=== PATIENT | female | born 1930 | race Caucasian/White ===

== ENCOUNTER 2017-09-09 08:47 | Inpatient (IN) | payer MEDICARE, BC ==
[2017-09-09] MEDS ORDERED: Ketorolac Tromethamine 30 MG/ML VIAL ONE (09:43)
--- NOTE | 2017-09-09 09:56 | RAD ---
PELVIS ONE VIEW: History: Injury. Comparison: None. FINDINGS: There is an intertrochanteric fracture of the right femur. There is one cortex width displacement. No significant varis angulation. Moderate degenerative disease at both hip joints. Obturator rings ar e intact. IMPRESSION: Nondisplaced intertrochanteric fracture of the right femur. POS: [facility]
--- NOTE | 2017-09-09 10:08 | RAD ---
RIGHT HIP 2 VIEWS: Date: 09/09/17 HISTORY: Injury, right hip pain. FINDINGS/IMPRESSION: There is an intertrochanteric fracture of the right proximal femur with mild displacement. POS: [facility]
[2017-09-09 10:30] LABS: #Basophils 0.1 thou/uL (0.0-0.2); #Eosinphils 0.4 thou/uL (0.0-0.7); #Lymphocytes 1.1 thou/uL (1.20-3.40); #Monocytes 0.3 thou/uL (0.11-0.59); #Neutrophils 3.9 thou/uL (1.40-6.50); %Basophils 1.2 % (0.0-1.0); %Eosinophils 7.7 % (0.0-10.0); %Lymphocytes 19.6 % (21.0-51.0); %Monocytes 4.9 % (0.0-10.0); %Neutrophils 66.7 % (42.0-75.0); Hemoglobin 11.7 g/dL (12.0-16.0); Mean Corpuscular HGB CONC 31.6 g/dL (32.0-36.0); Mean Corpuscular Hemoglobin 31.5 pg (27.0-31.0); Mean Corpuscular Volume 99.6 fl (81.0-99.0); Mean Platelet Volume 8.9 fL (7.4-10.4); Platelet Count 205 thou/uL (130-400); RBC Distribution Width 11.1 % (11.5-14.5); White Blood Cell (WBC) Count 5.8 thou/uL (4.8-10.8)
[2017-09-09 10:48] LABS: Prothrombin Time 13.7 SEC (12.0-14.7)
[2017-09-09 10:49] LABS: PTT 27.9 SEC (22.9-36.1)
[2017-09-09 10:54] LABS: ALT (SGPT) 8 U/L (8-55); AST (SGOT) 17 U/L (5-34); Alkaline Phosphatase 94 U/L (40-150); Anion Gap 13 mmol/L (10-20); BUN (Urea Nitrogen) 34 mg/dL (9.8-20.1); Bilirubin, Total 0.8 mg/dL (0.2-1.2); Calc. Creatinine Clearance 0 mL/min (70-130); Calcium 9.5 mg/dL (7.8-10.44); Carbon Dioxide 32 mmol/L (23-31); Chloride 100 mmol/L (98-107); Estimated GFR-MDRD 26; Globulin 3.3 g/dL (2.4-3.5); Glucose 132 mg/dL (83-110); Potassium 4.1 mmol/L (3.5-5.1); Protein, Total 7.3 g/dL (6.0-8.3); Sodium 141 mmol/L (136-145)
[2017-09-09] MEDS ORDERED: Promethazine HCl 25 MG/ML VIAL IM PRN ×2 (11:10→18:29)
[2017-09-09] MEDS ORDERED: Dextrose 5% in Water 1,000 ML IV PRN ×2 (11:10→21:42)
[2017-09-09] MEDS ORDERED: Dextrose 50% Abboject 50 ML SYRINGE SLOW IVP PRN ×2 (11:10→21:42)
[2017-09-09] MEDS ORDERED: Ondansetron HCl/PF 4 MG/2 ML Vial IVP PRN ×2 (11:10→18:29)
[2017-09-09] MEDS ORDERED: Ondansetron ODT 4 MG TAB PO PRN (11:10)
--- NOTE | 2017-09-09 11:39 | RAD ---
PORTABLE AP CHEST RADIOGRAPH: Date: 09-09-17 History: Right hip pain after a fall. Comparison: 12-18-07 FINDINGS: The cardiac silhouette and pulmonary vasculature are within normal limits. The lungs appear clear. Th ere is a linear density overlying the lateral left lung which is most likely related to overlying ski n fold as there does appear to be lung markings lateral to this region. No pleural effusion is presen t. Vascular calcification seen in the thoracic aorta. Degenerative changes are noted in the spine. Th ere is bilateral acromioclavicular joint osteoarthritis with bilateral glenohumeral osteoarthropathy. IMPRESSION: No acute cardiopulmonary process. POS: [facility]
--- NOTE | 2017-09-09 12:05 | CON ---
DATE OF CONSULTATION: 09/09/2017 REQUESTING PHYSICIAN: Dr. Mcduffie. CONSULTING PHYSICIAN: Dr. Markus Collins. REASON FOR CONSULTATION: Right hip fracture. BRIEF HISTORY: This is an 87-year-old female, who was at home today, taking out the trash when she t ripped over a door frame ledge in her house, falling and landing on her right side. She was brought to the [facility] where she was found to have an intertrochanteric fracture of t he right hip. Our service has been consulted for this reason. Patient currently reports pain level minimal, as 2/10. She denies any other orthopedic injuries at this time. Her baldtgao-sh-urr is pre sent with her at bedside. PAST MEDICAL HISTORY: Significant for hypertension and diabetes, which are both controlled. PAST SURGICAL HISTORY: Patient has had bilateral total knee replacements done many years ago. She d oes not remember the physician that operated on her knees at this time. SOCIAL HISTORY: The patient lives at home alone here in [place]. She is very active. She states that she walks down the street to [facility] every day. Son and ubruommp-mo-cmr live nearby. She denies any smoking, drinking, or use of illicit drugs. PHYSICAL EXAMINATION: VITAL SIGNS: Blood pressure 122/56, pulse of 76, respiratory rate of 18, temperature of 98.3, oxygen saturation 95% on room air. GENERAL: The patient is awake and alert. She is oriented x3. She is in no acute distress. She is lying supine on a stretcher in the emergency department. Tkjfcyqu-lz-imn is at bedside. She is plea ezio and cooperative with exam at this time. HEENT: Head normocephalic, atraumatic. NECK: Supple. EXTREMITIES: Right lower extremity noted to be externally rotated and not shortened at this time. S he is able to move her foot and ankle and all toes. Sensation is intact. Dorsalis pedis pulse is pa lpable. No other injuries noted at this time. Remainder of extremity exam is otherwise unremarkable . IMAGING DATA: Shows views of the pelvis and right hip, which show a minimally displaced intertrochan teric femur fracture. ASSESSMENT AND PLAN: Right hip intertrochanteric femur fracture. Plan is to proceed with surgery th is afternoon with Dr. Collins with a DHS device. Risks, benefits, and alternatives of surgery were discussed at length with the patient and her family today. They are both amenable to this plan. Th ey understand and are willing to go forward with surgery. The patient admitted to the Trauma Service . She will be n.p.o. except for medication with small sips of water.
--- NOTE | 2017-09-09 12:13 | HP ---
DATE OF ADMISSION: 09/09/2017 ATTENDING PHYSICIAN: Dr. Yusuf Mcduffie CONSULTING PHYSICIAN: Dr. Markus Collins CHIEF COMPLAINT: Right hip pain status post ground level fall. HISTORY OF PRESENT ILLNESS: Ms. Doyle is an 87-year-old female who was in her usual state of health this morning when she was taking out the trash and on her way back in tripped on the door frame and fell. She reports landing on her right buttocks and hip. She denies head injury, loss of consciousn ess or injury to other body part. She reports that she was initially able to bear weight. EMS was [facility] and she was transported to the [facility] where she was found to have a right intertrochante archie fracture. The patient denies headache, dizziness, nausea, vomiting, numbness or tingling in her extremities. She currently reports pain that is localized to the right groin area. She says with mo vement it is 10/10. However, the pain is a 0/10 with rest. The pain does not radiate. The patient reports that her last meal was this morning, which consisted of a few slices of canned apple. PAST MEDICAL HISTORY: The patient reports a history of congestive heart failure with ejection fracti on 40-45%. The patient also reports history of diabetes mellitus. The patient reports a significant weight loss over the last few years. She reports approximately 25 pounds in the last 6 months. The patient reports a previous history of falls. The patient reports a history of overactive bladder. MEDICATIONS: Patient reports following medications: 1. Metformin 500 mg b.i.d. 2. Myrbetriq 50 mg b.i.d. 3. Carvedilol 3.125 mg b.i.d. 4. VESIcare 10 mg daily. 5. Restasis 0.05% b.i.d. 6. Lasix 70 mg p.r.n. 7. Aspirin 81 mg daily. 8. Fish oil daily. 9. Vitamin B12 daily. 10. Vitamin D daily. 11. Theragran multivitamin daily. PAST SURGICAL HISTORY: The patient reports a history of bilateral mastectomy, bilateral knee replace ments and hysterectomy. SOCIAL HISTORY: The patient denies alcohol, drug use or tobacco use. The patient lives alone in a [facility] house. ALLERGIES: The patient reports a history of LEVAQUIN allergy. PSYCHIATRIC HISTORY: The patient denies any psychiatric history. CODE STATUS: The patient is full code. The patient has an advanced directive which she has left at home and for which she does not recall the contents. The patient's rsluuunj-ry-sti was at bedside an d was instructed to bring the advance directive to the hospital. REVIEW OF SYSTEMS: A 10 point review of systems was performed at bedside and is negative except as m entioned in the HPI. PHYSICAL EXAMINATION: VITAL SIGNS: BP 122/56, pulse 76, respirations 18, temperature 98.3, O2 sat 95% on room air. GENERAL: The patient is an elderly, frail adult female in no acute distress. HEENT: The patient is normocephalic and atraumatic. Eyes; pupils are equal, round, and reactive to light and accommodation. Pupils are 2 mm bilaterally. Extraocular movements intact. Ears; the christiano ent has bilateral hearing aids. Ears are atraumatic. Nose: Nares are patent and atraumatic. Mouth : Oropharynx is pink and moist with intact dentition. There is no evidence of trauma. NECK: Trachea is midline. She has no tenderness. CHEST: The patient has bilateral scars from a previous mastectomy. Breath sounds are clear to auscu ltation bilaterally. There is no chest wall tenderness. CARDIOVASCULAR: She has a regular rate and rhythm. Normal S1 and S2. ABDOMEN: Her abdomen is soft, flat and nontender. She has normal bowel sounds. EXTREMITIES: She is neurovascularly intact x4. She has a small 0.5 cm ulcer overlying a bunion on h er right foot. Another small ulcer is between her second and third toes on the right foot. Both of these are superficial. The patient has pain with palpation over her right groin and hip. Her right leg is mildly externally rotated and shortened. NEUROLOGIC: The patient's GCS is 15. She is alert and oriented x3. She has no focal deficits. PSYCHIATRIC: The patient's mood and affect are unremarkable. LABORATORY DATA: Hematology: WBC is 5.8, hemoglobin 11.7, hematocrit 36.9, platelets 205. Coagulat ion: PT 13.7, INR 1.0, APTT 27.9. Chemistry: Sodium 141, potassium 4.1, chloride 100, bicarbonate 32, BUN 34, creatinine 1.81, glucose 132, calcium 9.5, total bilirubin 0.8, AST 17, ALT 8, alkaline p hosphatase 94, serum total protein 7.3, albumin 4.0, globulin 3.3, albumin globulin ratio 1.2. IMAGIN. Pelvis x-ray; 1) nondisplaced intertrochanteric fracture of the right femur. 2. Hip x-ray, 1) there is an intertrochanteric fracture of the right proximal femur with mild displa cement. 3. Chest x-ray; official read is pending. ASSESSMENT AND PLAN: 1. Right intertrochanteric hip fracture. 2. Status post ground level fall. 3. Acute traumatic pain. 4. Elevated BUN and creatinine, likely secondary to chronic kidney disease. 5. History of congestive heart failure present on admission. 6. History of diabetes mellitus, present on admission. 7. History of significant weight loss. 8. History of falls. PLAN: 1. Plan will be to go to the OR today for surgical fixation of her right hip with Dr. Collins. 2. We will optimize her pain control. Initiate gastritis prophylaxis and mechanical deep venous thr ombosis prophylaxis. We will initiate chemical DVT prophylaxis when appropriate per Orthopedic Surge ry recommendations. 3. Rehab screen with PT and OT for mobilization postoperatively. 4. Avoid NSAIDs and other nephrotoxic agents as possible given her chronic kidney disease.
[2017-09-09] MEDS ORDERED: CEFAZOLIN/Water 2 GM/20 ML SYRINGE SLOW IVP SCH (12:15)
[2017-09-09] MEDS ORDERED: CEFAZOLIN/Water 2 GM/20 ML SYRINGE ONE (14:09)
[2017-09-09] MEDS ORDERED: PHENYLEPHRINE-NS 100 MCG/ML 10 ML SYRINGE ONE (14:39)
[2017-09-09] MEDS ORDERED: Propofol 200 MG/20 ML VIAL ONE (14:39)
[2017-09-09] MEDS ORDERED: Ondansetron HCl/PF 4 MG/2 ML Vial ONE (14:39)
[2017-09-09] MEDS ORDERED: Lidocaine 1% PF 5 ML VIAL ONE (14:39)
[2017-09-09] MEDS ORDERED: ePHEDrine/0.9% NaCl/PF SYRINGE 50 mg/10 ml ONE (14:39)
[2017-09-09] MEDS ORDERED: Fentanyl 250 MCG/5 ML VIAL ONE (16:46)
[2017-09-09] MEDS ORDERED: Promethazine HCl 25 MG/ML VIAL SLOW IVP PRN (18:29)
[2017-09-09 18:56] LABS: Bilirubin Negative (Negative); Blood, Urine Negative (Negative); Clarity CLEAR (Clear); Glucose, Urine (Dipstick) Negative (Negative); Leukocyte Negative (Negative); Nitrite Negative (Negative); Protein, Urine (Dipstick) Negative (Neg-Trace); Specific Gravity, Urine 1.014 (1.002-1.036); Urobilinogen 0.2 mg/dL (0.2-1.0)
--- NOTE | 2017-09-09 20:28 | RAD ---
TWO FLUOROSCOPIC SPOT IMAGES OF THE RIGHT HIP 09/09/17 INDICATION: Postop right hip. COMPARISON: Prior exam dated 09/09/17. FINDINGS: Since the comparison examination there has been interval reduction and placement of a right hip screw and side plate. Fracture alignment appears near anatomic. The hip screw and side plate project in th e expected position. No gross evidence of complication. IMPRESSION: Postoperative right hip. POS: [facility]
--- NOTE | 2017-09-09 20:29 | RAD ---
TWO VIEWS OF THE RIGHT HIP: 09/09/17 INDICATION: Postop. COMPARISON: Prior exam dated 09/09/17 at 5:01 p.m. FINDINGS: The right hip screw and side plate is not appreciably changed in position. Fracture alignment involvi ng the proximal right femur is unchanged and near anatomic. IMPRESSION: Postoperative right hip. POS: [facility]
--- NOTE | 2017-09-09 20:33 | OP ---
DATE OF PROCEDURE: 09/09/2017 OPERATION: Right intertrochanteric femur fracture, open reduction and internal fixation. PREOPERATIVE DIAGNOSIS: Right intertrochanteric femur fracture. POSTOPERATIVE DIAGNOSIS: Right intertrochanteric femur fracture. COMPLICATIONS: None. ESTIMATED BLOOD LOSS: 150 mL. SURGEON: Markus Collins M.D. IN HOUSE CRA: Abhay Bowles PA-C. INDICATIONS: Ms. Doyle is an 87-year-old female who fell this morning. She fractured her right fem ur. She was indicated for open reduction and internal fixation of the femur to restore anatomic alig nment and promote healing as well as promote early mobilization. Risk of surgery were reviewed. She elected to proceed with the operation. DESCRIPTION OF THE OPERATION: Ms. Doyle was identified in the preoperative holding area. She was t aken to the operating room. She was positioned supine on the fracture table. General anesthesia was induced. A multidisciplinary timeout was performed. The right lower extremity was prepped and drap ed in the sterile fashion. We began the procedure with intraoperative x-ray and evaluation of the fe mur fracture. We identified the intertrochanteric fracture and reduced this using traction and rotat ion. At this point, we made an incision over the lateral thigh. We dissected down through the subcu taneous tissues to the fascia, which was incised. We then split the vastus lateralis and worked down to the bony level. At this point, we placed our 135-degree guide on the lateral femur. We then ins erted our guide pin from distal to proximal into centered position of the femoral head. Once this wa s seated, we took x-rays laterally as well. We then overdrilled the guidewire. Next, we placed a 10 0-mm screw into the center position of the femoral head. A 3-hole DHS plate was attached to the scre w. We placed 3 distal screws. We confirmed hardware placement and alignment. There were no complic ations. We thoroughly irrigated with copious lavage. We then closed with 0-Vicryl suture, 2-0 Vicry l suture and bren for the skin and a sterile dressing was applied. The patient was taken to the r ecovery room in good condition without complication. IMPLANTS: Synthes dynamic hip screw size 100-mm with 3-hole plate.
[2017-09-09] MEDS: Sodium Chloride 0.9% 1,000 ML IV SCH ×2 (21:28→23:04)
[2017-09-09] MEDS ORDERED: HYDROcodone/Acetaminophen 10/325 mg Tablet PO PRN (21:41)
[2017-09-09] MEDS ORDERED: Insulin Regular 300 UNITS/3 ML VIAL SC PRN (21:42)
[2017-09-09] MEDS: Famotidine 20 MG TAB PO SCH (21:45)
[2017-09-09] MEDS: Famotidine/PF 20 mg/2ml Vial SLOW IVP SCH (21:49)
--- NOTE | 2017-09-09 22:09 | PRG ---
DATE OF SERVICE: 09/09/2017 SUBJECTIVE: The patient is immediately postop status post open reduction internal fixation of a righ t intertrochanteric femur fracture. The patient has just arrived on the [facility] from the post-anesthesi a care unit. She is awake, alert, and oriented and interacting appropriately, stating that her pain is controlled. The patient denies any nausea, vomiting, chest pain, or shortness of breath. OBJECTIVE: VITAL SIGNS: Stable. LUNGS: Clear to auscultation with good inspiratory and expiratory effort. EXTREMITIES: Postop dressing is clean, dry, and intact. She is neurovascularly intact distally. ASSESSMENT: 1. Status post fall. 2. Status post open reduction internal fixation of right intertrochanteric femur fracture. PLAN: Will be to transition the patient to p.o. pain medications, diet, weightbearing instructions p er Orthopedics and we will reduce her IV fluids, given her history of congestive heart failure. Thou gh we will continue them in light of the patient's acute kidney injury, we will recheck these labs in the morning and also follow her urinary output.
[2017-09-09] MEDS: traMADol HCl 50 MG TAB PO SCH (23:00)
[2017-09-09] MEDS: Acetaminophen 325 MG TAB PO SCH (23:00)
[2017-09-09] MEDS: CEFAZOLIN/Water 2 GM/20 ML SYRINGE SLOW IVP SCH (23:04)
[2017-09-10 00:36] VITALS: BMI 19.8
[2017-09-10 02:21] LABS: Bilirubin Negative (Negative); Blood, Urine Negative (Negative); Clarity CLEAR (Clear); Glucose, Urine (Dipstick) Negative (Negative); Leukocyte Small (Negative); Nitrite Negative (Negative); Protein, Urine (Dipstick) Negative (Neg-Trace); Specific Gravity, Urine 1.025 (1.002-1.036); Urobilinogen 0.2 mg/dL (0.2-1.0)
[2017-09-10 02:52] LABS: Bacteria/HPF None Seen HPF (None Seen); Hyaline Casts/LPF 0-3 HYALINE CAST LPF (0-3 Hyaline); Squamous Epithelial 0-3 HPF (0-3)
[2017-09-10] MEDS: traMADol HCl 50 MG TAB PO SCH ×3 (04:57→16:48)
[2017-09-10] MEDS: Acetaminophen 325 MG TAB PO SCH ×4 (04:57→22:20)
[2017-09-10 05:30] LABS: #Basophils 0.1 thou/uL (0.0-0.2); #Eosinphils 0.3 thou/uL (0.0-0.7); #Lymphocytes 1.3 thou/uL (1.20-3.40); #Monocytes 0.5 thou/uL (0.11-0.59); #Neutrophils 5.1 thou/uL (1.40-6.50); %Basophils 0.7 % (0.0-1.0); %Eosinophils 3.6 % (0.0-10.0); %Lymphocytes 18.3 % (21.0-51.0); %Neutrophils 70.5 % (42.0-75.0); Hemoglobin 10.7 g/dL (12.0-16.0); Mean Corpuscular HGB CONC 32.1 g/dL (32.0-36.0); Mean Corpuscular Hemoglobin 31.2 pg (27.0-31.0); Mean Corpuscular Volume 97.2 fl (81.0-99.0); Mean Platelet Volume 8.3 fL (7.4-10.4); Platelet Count 157 thou/uL (130-400); RBC Distribution Width 10.9 % (11.5-14.5); Red Blood Cell (RBC) Count 3.43 mill/uL (4.20-5.40); White Blood Cell (WBC) Count 7.2 thou/uL (4.8-10.8)
[2017-09-10 05:43] LABS: Anion Gap 13 mmol/L (10-20); BUN (Urea Nitrogen) 28 mg/dL (9.8-20.1); Calc. Creatinine Clearance 24 mL/min (70-130); Calcium 8.8 mg/dL (7.8-10.44); Carbon Dioxide 30 mmol/L (23-31); Chloride 99 mmol/L (98-107); Estimated GFR-MDRD 32; Glucose 124 mg/dL (83-110); Phosphorus 4.2 mg/dL (2.3-4.7); Potassium 4.3 mmol/L (3.5-5.1); Sodium 138 mmol/L (136-145)
[2017-09-10] MEDS: CEFAZOLIN/Water 2 GM/20 ML SYRINGE SLOW IVP SCH (06:25)
[2017-09-10] MEDS: Enoxaparin Sodium 30 MG/0.3 ML SYRINGE SC SCH (09:06)
[2017-09-10] MEDS: Carvedilol 3.125 MG TAB PO SCH ×2 (09:07→16:29)
[2017-09-10] MEDS ORDERED: traMADol HCl 50 MG TAB PO PRN (09:09)
[2017-09-10] MEDS ORDERED: Sodium Chloride 0.9% 500 ML IVPB SCH (11:45)
[2017-09-10] MEDS: cycloSPORINE 0.05% Ophthalmic Droperette EA EYE SCH ×2 (14:14→22:21)
[2017-09-10] MEDS: Sodium Chloride 0.9% 1,000 ML IV SCH ×2 (16:20→16:47)
--- NOTE | 2017-09-10 18:09 | PRG ---
DATE OF SERVICE: 09/10/2017 ATTENDING PHYSICIAN: Yusuf Mcduffie D.O. SUBJECTIVE: Ms. Doyle is an 87-year-old female who was admitted yesterday after suffering a ground level fall in which she suffered a right intertrochanteric femur fracture. She is now postop day #1 status post open reduction and internal fixation by Dr. Collins. The patient was alert and did not voice any complaints upon exam this morning. However, prior to this, she had a presyncopal episode when working with physical therapy. The patient was reported to have a systolic pressure in the 80s. No heart rate was reported by physical therapy staff. Per report, the patient became symptomatic o nly after standing while working with physical therapy. She was laid back down in bed after which sh e became more alert and oriented and was conversational with staff. Upon my examination, the patient was alert and oriented, but had no recollection of the event. She was given a 500 mL bolus of fluid s. After this, her vital signs were measured as follows 106/59 with a pulse of 72. She then stood a nd had a blood pressure of 56/37 with a pulse of 76. The patient was laid back down and blood pressu re was remeasured at 106/60 with a pulse of 67. OBJECTIVE: VITAL SIGNS: This morning, BP 117/62, pulse 67, temperature 97.9, respirations 12, O2 sat 98% on arnie m air. GENERAL APPEARANCE: The patient is an elderly somewhat frail adult female in no acute distress. HEENT: The patient is normocephalic and atraumatic. Pupils equal, round, and reactive to light and accommodation. Pupils approximately 2 mm bilaterally. RESPIRATORY: The patient has breath sounds that are clear to auscultation bilaterally. She has norm al effort of breathing. CARDIOVASCULAR: She has a regular rate and rhythm. Normal S1 and S2. No murmurs, gallops or rubs. ABDOMEN: Soft, flat and nontender. She has normal bowel sounds. NEUROLOGIC: The patient's GCS is 15. She is alert and oriented x3. She has no focal deficits. LABORATORY DATA: Hematology: WBC is 7.2, hemoglobin 10.7, hematocrit 33.4, platelets 157. Chemistr y: Sodium 138, potassium 4.3, chloride 99, bicarbonate 30, BUN 28, creatinine 1.53, glucose 124, marilyn cium 8.8, phosphorus 4.2, magnesium 2.0. Urinalysis significant for small leukocyte esterase and wbc s of 11-20. IMAGING: There are no images to review today. ASSESSMENT: 1. Right intertrochanteric hip fracture, status post open reduction and internal fixation. 2. Status post ground level fall. 3. Acute traumatic pain. 4. Chronic kidney disease. 5. Orthostatic hypotension. 6. History of diabetes mellitus, present on admission. 7. History of significant weight loss. 8. History of falls. PLAN: 1. We will continue to optimize the patient's pain control. The patient currently reports adequate pain control, so we will continue current regimen as ordered. 2. The patient received one 500 mL bolus of fluid for orthostatic hypotension. Maintenance fluids i ncreased to 80 per hour. We will watch closely and adjust as needed tomorrow prior to physical thera py. 3. PT and OT for mobilization. 4. Avoid NSAIDs and other nephrotoxic agents given chronic kidney disease. 5. Restart Restasis for dry eyes. 6. Restart melatonin for sleep. This patient was seen and examined with Dr. Yusuf Mcduffie on rounds and agrees with the assessment an d plan.
[2017-09-10] MEDS: Famotidine 20 MG TAB PO SCH (22:20)
[2017-09-10] MEDS: Melatonin 3 MG TAB PO SCH (22:21)
--- NOTE | 2017-09-10 22:30 | PRG ---
DATE OF SERVICE: 09/10/2017 SUBJECTIVE: Patient is postop day #1 status post open reduction internal fixation of a right proxima l femur fracture. The patient tolerated this procedure well. Today, had some reports of orthostatic type syncope when trying to work with physical therapy. At the current time, the patient is resting comfortably in his sleeping. Family asked that they not wake her. They stated that her pain is kong ng controlled and that she is not having any issues at this time. OBJECTIVE: GENERAL: Again, the patient appears to be resting comfortably, sleeping. RESPIRATIONS: Do not appear labored. VITAL SIGNS: Temperature is 97.8, heart rate 72, blood pressure 112/61, respirations 19, oxygen satu ration 99% on room air. ASSESSMENT AND PLAN: 1. Status post ground level fall. 2. Status post open reduction internal fixation of right intertrochanteric femur fracture. PLAN: We will be to continue supportive care, physical and occupational therapy and await placement decision.
[2017-09-11] MEDS: Famotidine/PF 20 mg/2ml Vial SLOW IVP SCH (01:35)
[2017-09-11] MEDS: traMADol HCl 50 MG TAB PO SCH ×4 (01:35→22:23)
[2017-09-11] MEDS: Acetaminophen 325 MG TAB PO SCH ×4 (03:05→22:22)
[2017-09-11 05:17] LABS: Anion Gap 9 mmol/L (10-20); BUN (Urea Nitrogen) 24 mg/dL (9.8-20.1); Calc. Creatinine Clearance 27 mL/min (70-130); Carbon Dioxide 33 mmol/L (23-31); Chloride 101 mmol/L (98-107); Estimated GFR-MDRD 37; Glucose 156 mg/dL (83-110); Magnesium 1.9 mg/dL (1.6-2.6); Phosphorus 3.8 mg/dL (2.3-4.7); Sodium 139 mmol/L (136-145)
[2017-09-11] MEDS: Sodium Chloride 0.9% 1,000 ML IV SCH (07:15)
[2017-09-11] MEDS: Carvedilol 3.125 MG TAB PO SCH ×2 (08:20→16:02)
[2017-09-11] MEDS: Enoxaparin Sodium 30 MG/0.3 ML SYRINGE SC SCH (08:22)
[2017-09-11] MEDS: Senokot S 8.6-50 MG TAB PO SCH ×2 (09:34→22:22)
[2017-09-11] MEDS: Polyethylene Glycol 3350 17 GM Packet PO SCH (09:34)
[2017-09-11] MEDS: cycloSPORINE 0.05% Ophthalmic Droperette EA EYE SCH ×2 (09:34→22:22)
[2017-09-11] MEDS: Midodrine HCl 5 MG TAB PO SCH ×3 (09:35→22:24)
--- NOTE | 2017-09-11 14:14 | PRG ---
DATE OF SERVICE: 09/11/2017 ATTENDING PHYSICIAN: Dr. Yusuf Mcduffie. SUBJECTIVE: Ms. Doyle is an 87-year-old female, who was admitted on 09/09/2017 after suffering a gr ound level fall, which resulted in a right intertrochanteric fracture. She is now postop day #2, sta tus post ORIF by Dr. Collins. The patient was alert and talkative. On exam this morning, she voca lized no complaints. The patient's family, who was present at bedside. The patient and family discu ssed a transfer to rehabilitation. Patient and family were in agreement with that plan. OBJECTIVE: VITAL SIGNS: BP 102/53, pulse 74, temperature 97.5, respirations 18, and O2 saturation 98% on room a ir. GENERAL: The patient is an elderly adult female, in no acute distress. HEENT: Normocephalic, atraumatic. RESPIRATORY: The patient has bilaterally clear breath sounds. She has normal work of breathing. CARDIOVASCULAR: She has regular rate and rhythm. Normal S1 and S2. No murmurs, gallops, or rubs. ABDOMEN: Soft, flat, nontender. Her bowel sounds are hypoactive this morning. NEUROLOGIC: The patient's GCS is 15. She is alert and oriented x3. She has no focal deficits. LABORATORY DATA: Chemistry: Sodium 139, potassium 4.0, chloride 101, bicarbonate 33, BUN 24, creati nine 1.36, glucose 156, calcium 8.0, phosphorus 3.8, magnesium 1.9. IMAGING: There were no images to review today. ASSESSMENT: 1. Right intertrochanteric hip fracture status post open reduction internal fixation. 2. Status post ground level fall. 3. Acute traumatic pain. 4. Chronic kidney disease. 5. Orthostatic hypotension. 6. History of diabetes mellitus, present on admission. 7. History of significant weight loss. 8. History of falls. PLAN: 1. We will continue to optimize patient's pain control while she is in house. 2. Encourage incentive spirometry, mobilization with PT and OT. 3. We will start midodrine for orthostatic hypotension. 4. Avoid NSAIDs and other nephrotoxic agents. 5. Case management is following the patient and has been approved for rehabilitation. The family is agreeable to this plan. Bed not available today, but should be available tomorrow. Anticipate disc harge tomorrow morning. This patient was seen and examined along with Dr. Yusuf Mcduffie on rounds, agrees with assessment and plan.
[2017-09-11] MEDS: Famotidine 20 MG TAB PO SCH (22:23)
[2017-09-11] MEDS: Melatonin 3 MG TAB PO SCH (22:23)
[2017-09-12] MEDS: Acetaminophen 325 MG TAB PO SCH ×3 (04:30→16:31)
[2017-09-12] MEDS ORDERED: Scopolamine 1.5 mg/72 hour Patch TD SCH (09:15)
[2017-09-12] MEDS: Enoxaparin Sodium 30 MG/0.3 ML SYRINGE SC SCH (09:46)
[2017-09-12] MEDS: Polyethylene Glycol 3350 17 GM Packet PO SCH (09:47)
[2017-09-12] MEDS: Senokot S 8.6-50 MG TAB PO SCH (09:47)
[2017-09-12] MEDS: traMADol HCl 50 MG TAB PO SCH (09:48)
[2017-09-12] MEDS: Carvedilol 3.125 MG TAB PO SCH ×2 (09:48→16:31)
[2017-09-12] MEDS: Midodrine HCl 5 MG TAB PO SCH ×2 (09:48→11:50)
[2017-09-12] MEDS: cycloSPORINE 0.05% Ophthalmic Droperette EA EYE SCH (10:31)
[2017-09-12 15:38] VITALS: BP 139/70; TEMP 98
--- NOTE | 2017-09-12 18:14 | PRG ---
DATE OF SERVICE: 09/12/2017 ATTENDING PHYSICIAN: Dr. Yusuf Mcduffie. SUBJECTIVE: Ms. Doyle is an 87-year-old female who had a ground level fall resulting in a right int ertrochanteric hip fracture. She is postoperative day #3 status post open reduction and internal fix ation by Dr. Collins. Pain has been well controlled. She does report that she is having some naus ea when she stands to ambulate with physical therapy. OBJECTIVE: VITAL SIGNS: Temperature 98.0, pulse 74, respirations 16, O2 sat 99% on room air, blood pressure 137 /69. HEENT: Atraumatic, normocephalic. RESPIRATORY: Bilateral breath sounds clear to auscultation. No respiratory distress. CARDIOVASCULAR: Regular rate and rhythm. Heart sounds normal. ABDOMEN: Soft, nontender, nondistended. NEUROLOGIC: GCS 15. Awake, alert, and oriented x3. ASSESSMENT: 1. Status post ground level fall. 2. Right intertrochanteric hip fracture status post open reduction and internal fixation. 3. Midodrine started for orthostatic hypotension yesterday. The patient's blood pressure has normal ized today and starting to become mildly hypertensive. We will stop midodrine. 4. Discharged to rehab when a bed available. Patient was reviewed with Dr. Mcduffie who agrees with plan.
== END 2017-09-12 20:11 | DRG 481 ==
LOC: ERS 08:47 → SDC 11:45 → SURG A 19:54
PROVIDERS: ADMIT Surgery; ATTEND Surgery
PROC: 0QS604Z Reposition Right Upper Femur with Internal Fixation Device, Open Approach (ICD-10-PCS; principal; 2017-09-09)
DX: S72.141A Displaced intertrochanteric fracture of right femur, initial encounter for closed fracture (principal); I13.0 Hypertensive heart and chronic kidney disease with heart failure and stage 1 through stage 4 chronic kidney disease, or unspecified chronic kidney disease; N17.9 Acute kidney failure, unspecified; E11.22 Type 2 diabetes mellitus with diabetic chronic kidney disease; I95.9 Hypotension, unspecified; I50.9 Heart failure, unspecified; Z68.1 Body mass index [BMI] 19.9 or less, adult; W01.0XXA Fall on same level from slipping, tripping and stumbling without subsequent striking against object, initial encounter; N18.9 Chronic kidney disease, unspecified; R63.4 Abnormal weight loss
CPT/HCPCS: 36415; 36416; 71045; 72170; 76001; 80048; 80053; 81001; 81003; 83735; 84100; 85025; 85610; 85730; 87086; 93005; 94640; C1713; G0390; G8978-GP-CL; G8979-GP-CJ; G8987-GO-CK; G8988-GO-CJ; J0131; J1650; J1815; J1885; J2001; J2270; J2405; J2704; J3010; J7050; J7620

== ENCOUNTER 2018-02-12 17:03 | Emergency (ER) | payer MEDICARE, BC ==
--- NOTE | 2018-02-12 19:43 | RAD ---
LEFT KNEE FOUR VIEWS: HISTORY: Fall. Pain. FINDINGS: There is mild bone demineralization. Uncomplicated arthroplasty. No joint effusion. No fracture. IMPRESSION: No fracture. POS: [facility]
== END 2018-02-12 17:47 | disposition home or self-care (01) ==
LOC: SCSER 17:03
DX: S80.02XA Contusion of left knee, initial encounter (principal); W18.30XA Fall on same level, unspecified, initial encounter

== ENCOUNTER 2018-05-04 12:56 | Inpatient (IN) | payer MEDICARE, BC ==
[2018-05-04] MEDS ORDERED: Magnesium 2 GM/50 ML BAG (IN WATER) ONE (13:04)
[2018-05-04 13:12] LABS: Actual Bicarbonate (HCO3a) 21.6 mEq/L (22-28); Analyzer IN Cardio ER; CO2 Tension 46.4 mmHg (35.0-45.0); Carboxyhemoglobin (COHb) 0.6 gm% (0.0-3.0); Hemoglobin (Hb) 12.4 g/dL (12.0-16.0); O2 Tension (PaO2) 63.3 mmHg (> 60.0); Potassium - ABG Lab 3.92 mmol/L (3.70-5.30); pH, Arterial 7.29 (7.35-7.45)
[2018-05-04 13:13] LABS: Puncture Site LBA
[2018-05-04] MEDS ORDERED: Amiodarone HCl 450 MG in Dextrose 5% in Water 250 ML IVPB SCH (13:15)
[2018-05-04 13:17] LABS: #Lymphocytes 0.5 thou/uL (1.20-3.40); #Monocytes 0.7 thou/uL (0.11-0.59); #Neutrophils 15.5 thou/uL (1.40-6.50); %Basophils 0.1 % (0.0-1.0); %Eosinophils 0.1 % (0.0-10.0); %Monocytes 4.1 % (0.0-10.0); %Neutrophils 92.7 % (42.0-75.0); Hemoglobin 12.9 g/dL (12.0-16.0); Mean Corpuscular Hemoglobin 30.5 pg (27.0-31.0); Mean Corpuscular Volume 98.4 fL (78.0-98.0); Mean Platelet Volume 7.9 fL (7.4-10.4); Platelet Count 313 thou/uL (130-400); RBC Distribution Width 11.9 % (11.5-14.5); Red Blood Cell (RBC) Count 4.23 mill/uL (4.20-5.40); White Blood Cell (WBC) Count 16.8 thou/uL (4.8-10.8)
[2018-05-04 13:46] LABS: CKMB 2.2 ng/mL (0-6.6); Troponin I 0.027 ng/mL (< 0.028)
[2018-05-04 13:49] LABS: ALT (SGPT) 17 U/L (8-55); AST (SGOT) 32 U/L (5-34); Acetaminophen Less than 6.0 mcg/mL (10.0-30.0); Albumin 3.8 g/dL (3.4-4.8); Alcohol Less than 10 mg/dL (Less than 10); Alkaline Phosphatase 140 U/L (40-150); Anion Gap 16 mmol/L (10-20); BUN (Urea Nitrogen) 26 mg/dL (9.8-20.1); Bilirubin, Total 0.6 mg/dL (0.2-1.2); CK (CPK) 125 U/L (29-168); Calc. Creatinine Clearance 0 mL/min (70-130); Calcium 8.8 mg/dL (7.8-10.44); Carbon Dioxide 19 mmol/L (23-31); Chloride 108 mmol/L (98-107); Estimated GFR-MDRD 37; Globulin 3.4 g/dL (2.4-3.5); Glucose 186 mg/dL (83-110); Lipase 31 U/L (8-78); Potassium 4.4 mmol/L (3.5-5.1); Protein, Total 7.2 g/dL (6.0-8.3); Salicylate Less than 8.0 mg/dL (15.0-30.0); Sodium 139 mmol/L (136-145)
[2018-05-04 14:02] LABS: Bilirubin Negative (Negative); Blood, Urine Negative (Negative); Clarity CLEAR (Clear); Glucose, Urine (Dipstick) Negative (Negative); Leukocyte Trace (Negative); Nitrite Negative (Negative); Protein, Urine (Dipstick) Negative (Neg-Trace); Specific Gravity, Urine 1.008 (1.002-1.036); Urobilinogen 0.2 mg/dL (0.2-1.0)
[2018-05-04 14:03] LABS: Bacteria/HPF None Seen HPF (None Seen); Hyaline Casts/LPF 0-3 HYALINE CAST LPF (0-3 Hyaline); Pathc Cast-AUWi Flag 0.14 (0-2.49); RBC/HPF 0-3 HPF (0-3); Squamous Epithelial None Seen HPF (0-3); WBC/HPF None Seen HPF (0-3)
[2018-05-04] MEDS ORDERED: niCARdipine 20MG In NaCl 20 MG/200 ML BAG ONE (14:09)
[2018-05-04 14:12] LABS: Amphetamine Not Detected (NotDetected); Barbiturates Screen Not Detected (NotDetected); Benzodiazepine Screen Not Detected (NotDetected); Cocaine Metabolite Screen Not Detected (NotDetected); Medtox Control Line Valid? VALID (VALID); Medtox Reader # READER 1; Methadone Not Detected (NotDetected); Methamphetamine Not Detected (NotDetected); Opiate Screen Not Detected (NotDetected); Oxycodone Screen Not Detected (NotDetected); Phencyclidine (PCP) Not Detected (NotDetected); THC/Cannabinoid Screen Not Detected (NotDetected); Tricyclic Screen Not Detected (NotDetected)
--- NOTE | 2018-05-04 14:15 | RAD ---
PORTABLE SUPINE CHEST ONE VIEW: HISTORY: An 87-year-old female with a history of being unresponsive. Intubation. FINDINGS: NG tube and endotracheal tube in position. Monitor leads overly the chest. There appears to be exte nsive bilateral interstitial and alveolar, primarily perihilar and upper lobe, parenchymal changes, w hich certainly could be consistent with extensive pulmonary edema. Bilateral upper lobe pneumonia co uld have a similar appearance, radiographically. Slight costophrenic angle blunting. These parenchy mal changes are new from a prior 09/09/2017 study. IMPRESSION: Bilateral vascular congestion and bilateral interstitial and alveolar parenchymal changes in the sylvester hilar regions and in both right and left upper lobes. Possibilities include that of some asymmetric pulmonary edema versus bilateral upper lobe pneumonia or pneumonitis. Please correlate clinically. Continued short-term followup for clearing or stability. Life support tubes in satisfactory location . POS: [facility]
[2018-05-04] MEDS ORDERED: manNITOL 20% 500 ML ONE (14:16)
[2018-05-04] MEDS ORDERED: Bisacodyl 10 MG SUPP PR PRN (14:25)
[2018-05-04] MEDS ORDERED: Mag-Al 1200 mg/1200 mg/30 ML UDCUP PO PRN (14:25)
[2018-05-04] MEDS ORDERED: CCU Electrolyte Replacement 1 EACH IVPB ONE (14:25)
[2018-05-04] MEDS ORDERED: Ondansetron PF 4 MG/2 ML Vial IVP PRN (14:25)
[2018-05-04] MEDS ORDERED: Sodium Chloride 0.9% 1,000 ML IV SCH (14:30)
[2018-05-04] MEDS ORDERED: niCARdipine 40MG In NaCl 40 MG/200 ML BAG IVPB SCH (14:30)
--- NOTE | 2018-05-04 14:37 | HP ---
HISTORY OF PRESENT ILLNESS: Ms. Doyle is an 87-year-old woman who presented to the emergency depart ment at [facility] via EMS from her shelter. She was found unresponsive this morning w ith fixed constricted pupils. Ultimately, she was intubated in the field and brought here for not be ing able to protect her airway. CT scan was performed of the department reveals large diffuse left i ntracerebral hemorrhage involving the temporal lobe, the frontal lobe and parietal lobe with already 11 mm of midline shift and subfalcine herniation. She is on 81 mg of aspirin but no other blood thin ners. Seeing her at bedside, she is unresponsive, intubated. She has not had any paralytics or ty tion. She does not respond to deep pain stimulus. Her pupils are equal, but constricted and either nonreactive or very sluggishly reactive that I can perceive. She does not have corneal reflex, but d oes have a gag and cough. She is not overbreathing the vent at the moment. Family is at bedside. I discussed the nature of her bleed and prognosis. PAST MEDICAL HISTORY: Significant for diabetes. CURRENT MEDICATION: Aspirin. The rest is unassessed. ALLERGIES: LEVAQUIN, SIMVASTATIN. PAST SURGICAL HISTORY: Unassessed. PHYSICAL EXAMINATION: GENERAL: Patient is intubated and comatose at bedside. HEENT: Pupils constricted and nonreactive. Extraocular movements are unable to be assessed. Cornea l reflex absent. Gag and cough reflex present. She is not overbreathing the ventilator. GCS is 3T. ASSESSMENT: Intracerebral hemorrhage and coma. PLAN: I discussed with [id number] at bedside, the patient has an extraordinarily large and like ly fatal intracerebral bleed of the left dominant hemisphere. Plan will be maxed medical care only: She is not a DNR. This will include mannitol 30 grams at 1 gram per kilogram IV as well as a Charlene e drip to bring her blood pressure below 160 systolic and maintain there. We will admit to the ICU w ith q.1 hour neuro checks. I feel definitively this is a nonsurgical case and that there are unfortu nately is likely already a low chance of survival given the situation. Family expressed understandin g. We will check again in the morning. Consultation to Pulmonary Critical Care.
[2018-05-04] MEDS ORDERED: Sodium Bicarb 50 MEQ/50 ML Abboject 8.4% SYRINGE ONE (15:00)
[2018-05-04] MEDS ORDERED: EPINEPHrine 1 MG/10 ML Abboject SYRINGE ONE (15:00)
--- NOTE | 2018-05-04 15:06 | CT ---
BRAIN CT WITHOUT IV CONTRAST: Date: 05/04/18 HISTORY: 87-year-old female found down, unresponsive, stroke alert. FINDINGS: Huge intraparenchymal hemorrhagic changes involving the left temporal and parietal lobes, as well as a second area of intraparenchymal hemorrhage involving the left frontal lobe. There is also a small l eft-sided subdural hemorrhage and some intraventricular hemorrhage. There is 1.2 cm of midline shift to the right. There is evidence for dilatation of the right lateral ventricle temporal horn, evidence for some herniation. IMPRESSION: Extensive hemorrhagic changes, including very large left-sided intraparenchymal hemorrhage, left-side d subdural hemorrhage, and intraventricular hemorrhage, with severe midline shift to the right, and e vidence of herniation, probably secondary to extensive infarct hemorrhagic conversion. Findings discussed with Dr. Samayoa in the ER at 1401 hours. CODE CR. POS: MCKAY
--- NOTE | 2018-05-04 15:09 | CT ---
CT CERVICAL SPINE NONCONTRAST: Date: 05/04/18 HISTORY: 87-year-old female status post fall, resulting in cervical spine trauma. FINDINGS: There are no jumped or perched facets. There is no evidence of acute fracture. The vertebral body h eights are maintained. There is no prevertebral soft tissue swelling. There are degenerative disc c hanges and facet osteoarthrosis. The lower images demonstrate somewhat severe mixed alveolar and interstitial infiltrates (mostly alve olar), at the apical segments of the upper lobes of the bilateral lungs. Endotracheal tube and nasoga stric tube are present. There are large anterior bridging osteophytes at C4-5-6, which distort and di splace the larynx and hypopharynx. This could potentially result in dysphagia. IMPRESSION: 1. Cervical spondylosis. 2. No evidence of acute fracture or acute traumatic subluxation. 3. Severe pulmonary infiltrates in the upper lobes of bilateral lungs. 4. Large bridging osteophytes displace the larynx, and could potentially cause dysphagia. savana [] POS: MCKAY
[2018-05-04] MEDS ORDERED: Potassium Phosphate 15 MMOL in Sodium Chloride 0.9% 250 ML 250 ML IV PRN (15:30)
[2018-05-04] MEDS ORDERED: Potassium Phosphate 12 MMOL in Sodium Chloride 0.9% 250 ML 250 ML IV PRN (15:30)
[2018-05-04] MEDS ORDERED: Potassium Phosphate 9 MMOL in Sodium Chloride 0.9% 100 ML IVPB PRN (15:30)
[2018-05-04] MEDS ORDERED: Magnesium Oxide 400 MG TAB PO PRN ×2 (15:30)
[2018-05-04] MEDS ORDERED: Magnesium 2 GM/NS 0.9% 100 ML 2 GM in Premix Bag 1 BAG IVPB PRN (15:30)
[2018-05-04] MEDS ORDERED: Potassium Chloride 40 MEQ in Premix Bag 1 BAG IVPB PRN (15:30)
[2018-05-04] MEDS ORDERED: Potassium Chloride 40 MEQ in Sodium Chloride 0.9% 250 ML 250 ML IVPB PRN (15:30)
[2018-05-04] MEDS ORDERED: Potassium Chloride 20 MEQ TAB PO PRN (15:30)
[2018-05-04] MEDS ORDERED: CCU ELECTROLYTE REPLACEMENT PROTOCOL FS PRN (15:30)
[2018-05-04] MEDS ORDERED: niCARdipine HCl 25 MG in Sodium Chloride 0.9% 250 ML 240 ML IVPB SCH (15:45)
[2018-05-04 16:42] VITALS: BMI 21.7
[2018-05-04] MEDS: Cefepime 1 GM in Sodium Chloride 0.9% 100 ML IVPB SCH (16:57)
[2018-05-04 17:17] LABS: Lactic Acid 3.7 mmol/L (0.5-2.2)
[2018-05-04] MEDS ORDERED: HumaLOG 300 UNITS/3 ML VIAL SC PRN ×2 (17:33)
[2018-05-04] MEDS ORDERED: Dextrose 50% Abboject 50 ML SYRINGE SLOW IVP PRN (17:33)
[2018-05-04] MEDS ORDERED: Dextrose 5% in Water 1,000 ML IV PRN (17:33)
[2018-05-04] MEDS: Famotidine/PF 20 mg/2ml Vial SLOW IVP SCH (20:26)
[2018-05-04 20:59] LABS: Anion Gap 10 mmol/L (10-20); BUN (Urea Nitrogen) 24 mg/dL (9.8-20.1); Calc. Creatinine Clearance 33 mL/min (70-130); Calcium 8.3 mg/dL (7.8-10.44); Carbon Dioxide 28 mmol/L (23-31); Chloride 109 mmol/L (98-107); Estimated GFR-MDRD 40; Glucose 125 mg/dL (83-110); Potassium 4.2 mmol/L (3.5-5.1); Sodium 143 mmol/L (136-145)
[2018-05-04] MEDS ORDERED: Mannitol 12.5 GM/50 ML IV PRN ×2 (21:00→23:17)
[2018-05-04] MEDS ORDERED: Melatonin 3 MG TAB PO SCH (21:00)
[2018-05-04] MEDS ORDERED: Acetaminophen 325 MG TAB PO PRN (21:13)
[2018-05-04] MEDS ORDERED: Polyethylene Glycol 3350 17 GM Packet PO PRN (21:13)
--- NOTE | 2018-05-04 21:59 | CON ---
DATE OF CONSULTATION: 05/04/2018 This is an 87-year-old female who lives at the [facility]. She was brought hospital after she was found down. They were unable to contact her. She was intubated in the field and brought to the hospital. A CT of the head shows a very large left intracerebral hemorrhage involving the frontal, parietal , and temporal lobes with midline shift. I spoke to her [id number]-[id number] and 2 sons at the bedside. Her physician is at [facility], though she has been here recently when she sustained a fall and fractured her leg. Extensive history at that time in August stated that the patient has____, 1. Congestive heart failure, EF of about 40%-45%. 2. Diabetes, much improved. 3. Congestive heart failure. 4. Cardiac arrhythmias. 5. BPH. PAST SURGICAL HISTORY: Bilateral mastectomy for carcinoma, hysterectomy, knee replacement. SOCIAL HISTORY: No alcohol or tobacco abuse. MEDICATIONS: List of medicine from home, which includes tramadol, metformin 500 twice a day, eyedrops, Myrbetriq 50 twice a day, Pepcid, B12, Coreg 3.125 twice a day, Tylenol. ALLERGIES: LEVAQUIN and SIMVASTATIN. Since admission, she was started on nicardipine and amiodarone. REVIEW OF SYSTEMS: Otherwise unobtainable. PHYSICAL EXAMINATION: HEENT: Pupils are 2 mm and reactive. VITAL SIGNS: Pulse 100, sats are 96% on the vent, temperature 98. NEUROLOGIC: Unresponsive, upgoing toes. CHEST: Decreased breath sounds without any wheezing. CARDIAC: Normal S1, S2. No gallops. ABDOMEN: Soft. No masses. LABORATORY DATA: White count 16,000, H and H of 12 and 41, platelet count 313. PO2 is 63, pCO2 of 46, pH of 7.2, rate of 12, 50%, 400 tidal volume. Creatinine is 1.3. Drug screen was negative. CT brain showed as noted above large left frontal, parietal, and temporal hemorrhage. She is not a surgical candidate. IMAGING: Chest x-ray shows bilateral infiltrates, aspiration versus pulmonary edema. Cervical spine CT was done, which showed no acute fractures, bilateral pulmonary infiltrates seen. IMPRESSION: 1. Status post left-sided frontal, temporal, and parietal hemorrhage. 2. Probably aspiration pneumonia. 3. Congestive heart failure. 4. Renal failure. 5. Diabetes. 6. Cardiac arrhythmias. PLAN: I agree with present treatment. As per the family members whom I discussed, she wants to be DNR before the cardioversion shock, etc. We will continue vent support. I may empirically put her on some antibiotics. PROGNOSIS: Grave. Consultation note in ICU, 45-minutes critical care time. DENNYS
[2018-05-04 22:12] VITALS: TEMP 100.2
--- NOTE | 2018-05-04 22:43 | CT ---
CT BRAIN: 05/04/2018 COMPARISON: Exam done earlier in the day on 05/04/2018. FINDINGS: CT images of the brain demonstrate a massive left intracranial hemorrhage with a large area of left c erebral infarction. The hemorrhage has extended from the left cerebral hemisphere into the right and left lateral ventricles, as well as into the fourth ventricle. The fourth ventricular blood was not previously seen on the earlier scan from earlier in the day. There is increasing left to right shift. Previously, the midline shift measured approximately 12 mm. At this time it measures approximately 15 mm. There is subfalcine herniation. The left-sided subdural hematoma is unchanged. IMPRESSION: Increasing intraventricular hemorrhage with large left hemispheric hemorrhage and increasing surround ing edema. POS: MCKAY
[2018-05-04] MEDS: Carvedilol 3.125 MG TAB PO SCH (22:57)
[2018-05-04] MEDS: cycloSPORINE 0.05% Ophthalmic Droperette EA EYE SCH (23:04)
[2018-05-04] MEDS: Senokot S 8.6-50 MG TAB PO SCH (23:04)
[2018-05-04] MEDS: Sodium Chloride 0.9% 1,000 ML IV SCH (23:06)
--- NOTE | 2018-05-04 23:13 | HP ---
DATE OF SERVICE: 05/04/2018 PRIMARY CARE PROVIDER: [facility]. CHIEF COMPLAINT: Unresponsive. HISTORY OF PRESENT ILLNESS: This is an 87-year-old female who presents from [facility] s the patient lives in the assisted living section. The patient apparently was found unresponsive on the floor with pinpoint pupils by EMS personnel. The patient was intubated in the field due to conc phani for airway protection and a Iredell coma scale of 3. The patient resides at [facility], uses a rolling walker for ambulation and typically is functional of all activities of daily living. Histor y is obtained after discussions with the patient's granddaughter as well as review of the electronic medical record in the emergency room as well as discussions with the emergency room attending as christiano ent is currently unresponsive and nonverbal. Family reports the patient was recently admitted to [facility] and she may end from 09/09/2017 to 09/12/2017 after suffering a ground level fall with associated right hip fracture. The patient underwent open reduction internal fixati on on 09/09/2017 with subsequent convalescence and inpatient rehabilitation. In the emergency room, the patient underwent general evaluation including CT of the brain showing a large intracranial hemor rhage in the left temporal and parietal lobes with associated subdural hemorrhage, intraventricular h emorrhage and severe midline shift to the right. The patient was also noted with herniation. The pa margarita was continued on mechanical ventilation and treated with mannitol 30 g grams IV push in additio n to Cardene infusion, sodium bicarbonate, and magnesium sulfate. The patient also received amiodaro ne after a short run of ventricular tachycardia was noted. Discussions were had with the family afte r neurosurgical consultation without recommendations for acute surgical intervention. Due to the pat ient's advanced age and extensive hemorrhage, prognosis remained poor. According to the son, who is medical power of assistant city attorney, the patient is do not resuscitate. The patient was transferred to the cri tical care unit for further monitoring. PAST MEDICAL HISTORY: 1. Diabetes mellitus type 2. 2. Systolic congestive heart failure, mild. 3. Osteoarthritis. 4. Recent mechanical fall with right hip fracture. 5. Hypertension. 6. Hyperlipidemia. 7. Breast cancer with bilateral mastectomy in 1987. 8. History of vertigo. 9. Cataracts. PAST SURGICAL HISTORY: 1. Status post bilateral total knee arthroplasty. 2. Status post right hip open reduction and internal fixation in 2018. 3. Status post cardiac catheterization. 4. Status post bilateral mastectomy. CURRENT MEDICATIONS: 1. Carvedilol 3.125 mg p.o. b.i.d. 2. Melatonin 10 mg p.o. at bedtime. 3. MiraLax 17 grams p.o. daily. 4. Restasis ophthalmic drops 1 drop to each eye b.i.d. 5. List may not be complete and will need to be confirmed with family members. ALLERGIES: LEVAQUIN and SIMVASTATIN. FAMILY HISTORY: Positive for hypertension. SOCIAL HISTORY: The patient currently resides at [facility]. Ambulates with use of a rolling walk er. History of falls. No current alcohol, tobacco or illicit drug use. Accompanied by her claire duong in the hospital. The son is medical power of assistant city attorney. REVIEW OF SYSTEMS: Unobtainable as patient on current mechanical ventilation and unresponsive. PHYSICAL EXAMINATION: VITAL SIGNS: Currently, blood pressure 114/53, pulse 82, respiratory rate 20, temperature 98.2 degre es Fahrenheit, O2 saturation 100% on 55% FiO2 by SIMV. GENERAL APPEARANCE: This is an 87-year-old female on current mechanical ventilation and un responsive. HEENT: Pupils are pinpoint, fixed and nonreactive. Fixed gaze noted. No conjunctival injection pre sent. Nares patent. OP with ET tube in place. The patient noted biting on tube occasionally. NECK: Supple, no cervical adenopathy, no thyromegaly, no carotid bruits, no JVD noted. Scalp atraum atic. C-collar in place. CHEST: Lungs are clear to auscultation bilaterally. CARDIOVASCULAR: S1, S2, without noted murmur, rub or gallop. ABDOMEN: Rounded, soft, nontender, nondistended. Bowel sounds are positive in all four quadrants. There is no hepatosplenomegaly, no palpable mass. EXTREMITIES: Warm and dry with fair turgor. No clubbing, cyanosis or asymmetric edema appreciated. Multiple areas of ecchymosis and skin tears on the upper extremities noted. Pulses are palpable dis tally at the dorsalis pedis, posterior tibial, and popliteal arteries bilaterally. Capillary refill less than 2 seconds. NEUROLOGIC: Iredell coma scale of 3, unresponsive to painful or verbal stimuli. Pinpoint pupils are nonreactive. GENITOURINARY: Skinner catheter in place with maranda urine. PERTINENT LABORATORY AND X-RAY FINDINGS: Sodium 139, potassium 4.4, chloride 108, CO2 of 19, BUN 26, creatinine 1.35. Estimated GFR 37, glucose 186. Lactic acid level ranged between 3.5-3.7, calcium 8.8. LFTs within normal limits. Troponin I 0.027. Lipase 31. CBC showed a white blood cell count 16.8, hemoglobin 13, hematocrit 42, MCV 98, platelet count 313 with 93% neutrophils. ABG dated 05/04 at 1311 p.m. showed a pH 7.29, pCO2 of 46.4, pO2 63, bicarbonate 21.6, O2 saturation 89% on 50% FiO2, SIMV settings. Urinalysis showed trace leukocyte esterase. Urine drug screen dated 8 negative. Plasma alcohol level less than 10. CT of the cervical spine dated 05/04/2018 showed cer vical spondylosis without evidence of acute fracture or dislocation. Portable chest x-ray dated 04/23 showed bilateral vascular congestion and bilateral interstitial alveolar parenchymal changes a nd upper and perihilar tesfaye. CT of the brain without contrast dated 05/04/2018 showed extensive he morrhagic changes in the left frontal, temporal, and parietal region. 1.2 cm midline shift with evid ence of herniation. EKG dated 05/04/2018 by my interpretation shows sinus tachycardia with heart rat es in the 120s. Occasional premature ventricular complex noted. Nonspecific ST-T wave changes. Nor mal axis. ASSESSMENT AND PLAN: 1. Acute intracranial hemorrhage with herniation and cerebral edema with midline shift. The patient will be admitted to the critical care unit. Neurosurgical consultation obtained; however, no acute surgical intervention recommended currently. We will continue mechanical ventilation as stated previ ously in addition to mannitol 12.5 grams IV q.6 hours. Continue Cardene infusion and monitor blood p ressure response. Initial appearance is a catastrophic event with poor prognosis. We will continue serial neuro checks and serial CT imaging. Family updated of the severity of clinical condition. 2. Acute kidney injury. Suspect secondary to dehydration and #1. We will continue gentle IV fluids and avoid nephrotoxic agents and limit contrast media. Repeat creatinine in the a.m. 3. Lactic acidosis. Suspect secondarily to respiratory failure and #1. We will continue serial mon itoring and treat underlying condition. 4. Acute hypoxic respiratory failure. We will continue mechanical ventilation with SIMV. Pulmonolo gy and Critical Care consult obtained. Serial chest x-rays. 5. Diabetes mellitus type 2. Insulin sliding scale for reflexive coverage. Serial Accu-Cheks. 6. Prophylaxis. Sequential compression devices while in bed. Protonix 40 mg IV daily. 7. Code status is do not resuscitate, confirmed with medical power of assistant city attorney.
[2018-05-05 04:29] LABS: Anion Gap 11 mmol/L (10-20); BUN (Urea Nitrogen) 26 mg/dL (9.8-20.1); Calc. Creatinine Clearance 30 mL/min (70-130); Calcium 8.1 mg/dL (7.8-10.44); Carbon Dioxide 27 mmol/L (23-31); Chloride 109 mmol/L (98-107); Estimated GFR-MDRD 35; Glucose 153 mg/dL (83-110); Potassium 4.2 mmol/L (3.5-5.1); Sodium 143 mmol/L (136-145)
[2018-05-05] MEDS: Cefepime 1 GM in Sodium Chloride 0.9% 100 ML IVPB SCH (05:50)
[2018-05-05 05:58] LABS: #Basophils 0.1 thou/uL (0.0-0.2); #Lymphocytes 1.1 thou/uL (1.20-3.40); #Monocytes 0.7 thou/uL (0.11-0.59); #Neutrophils 10.5 thou/uL (1.40-6.50); %Basophils 0.4 % (0.0-1.0); %Eosinophils 0.1 % (0.0-10.0); %Lymphocytes 8.6 % (21.0-51.0); %Monocytes 5.7 % (0.0-10.0); %Neutrophils 85.2 % (42.0-75.0); Hemoglobin 9.3 g/dL (12.0-16.0); Mean Corpuscular HGB CONC 31.3 g/dL (32.0-36.0); Mean Corpuscular Hemoglobin 30.3 pg (27.0-31.0); Mean Corpuscular Volume 96.7 fL (78.0-98.0); Mean Platelet Volume 9.2 fL (7.4-10.4); Platelet Count 257 thou/uL (130-400); RBC Distribution Width 12.3 % (11.5-14.5); Red Blood Cell (RBC) Count 3.07 mill/uL (4.20-5.40); White Blood Cell (WBC) Count 12.3 thou/uL (4.8-10.8)
[2018-05-05 06:58] VITALS: BP 93/39
[2018-05-05 07:24] LABS: Actual Bicarbonate (HCO3a) 24.6 mEq/L (22-28); Base Excess (BEa) 1.3 mEq/L (-2.0 to +3.0); CO2 Tension 33.7 mmHg (35.0-45.0); Calcium, Ionized 1.06 mmol/L (1.12-1.30); Carboxyhemoglobin (COHb) 1.2 gm% (0.0-3.0); Hemoglobin (Hb) 8.9 g/dL (12.0-16.0); O2 Tension (PaO2) 140.8 mmHg (> 60.0); Potassium - ABG Lab 4.02 mmol/L (3.70-5.30); pH, Arterial 7.48 (7.35-7.45)
[2018-05-05 07:25] LABS: ALV-art Gradient 209.225 (0-20); Puncture Site RRA
[2018-05-05] MEDS: Sodium Chloride 0.9% 1,000 ML IV SCH (07:42)
[2018-05-05] MEDS: Carvedilol 3.125 MG TAB PO SCH (08:19)
--- NOTE | 2018-05-05 08:40 | PRG ---
DATE OF SERVICE: 05/05/2018 Chica Doyle is an 87-year-old female. This morning she remains unresponsive on the vent. Pupils a re pinpoint and equal. PHYSICAL EXAMINATION: VITAL SIGNS: Blood pressure 119/52, sats are 96%, respiration is 18, temperature 100.6. NEUROLOGIC: Unresponsive. Toes are upgoing. CHEST: Chest reveals decreased breath sounds, no wheezing. CARDIAC: Normal S1, S2. No gallops. ABDOMEN: Soft, no masses. LABORATORY: PO2 140, pCO2 33.48 on a rate of 12, 55%, 400 tidal volume. Creatinine 1.4. X-ray show s bilateral infiltrates. IMPRESSION: 1. Status post massive intracerebral hemorrhage on the left side with a midline shift. 2. History of cardiac arrhythmia. 3. Congestive heart failure. 4. Possible aspiration pneumonia. PLAN: Palliative Care has been called in as per family. Comfort care. Extubate when okay with family. She is a DNR. One-half hour critical care time.
--- NOTE | 2018-05-05 08:55 | RAD ---
CHEST 1 VIEW: INDICATION: Intubation. COMPARISON: Prior exam dated 05/04/2018. FINDINGS: There is improvement in the central edema pattern, pulmonary vascular congestion, and cardiomegaly. Tiny pleural effusions are present, however. No pneumothorax is evident. The patient remains intuba gunner with gastric catheter placement. IMPRESSION: Improving volume overload or congestive heart failure. POS: TPC
[2018-05-05] MEDS: Famotidine/PF 20 mg/2ml Vial SLOW IVP SCH (09:05)
[2018-05-05] MEDS: Senokot S 8.6-50 MG TAB PO SCH (09:05)
[2018-05-05] MEDS ORDERED: Lorazepam 2 MG/ML VIAL SLOW IVP PRN (09:12)
[2018-05-05] MEDS: cycloSPORINE 0.05% Ophthalmic Droperette EA EYE SCH (10:09)
[2018-05-05] MEDS: Morphine 10 MG/ML VIAL SLOW IVP PRN ×2 (13:42→15:45)
--- NOTE | 2018-05-05 13:45 | PRG ---
DATE OF SERVICE: 05/05/2018 Ms. Doyle this morning is stable on her examination yesterday which is comatose on the ventilator. Pupils are equally round and sluggishly reactive to light. She has no gag nor cough, but does mainta in a corneal reflex particularly on the right. CT scan that was performed around 10:00 yesterday cordell murillo reveals worsening midline shift of 1.5 cm with somewhat mild enlargement of the hemorrhages in b oth the parietal, temporal, and frontal lobes. I had another discussion with the family, now with th e [id number] and the oldest son of the patient regarding the poor prognosis and discussed pallia tive care and possible extubation. The family is receptive to this idea and we will consult Palliati ve Care for this purpose.
--- NOTE | 2018-05-06 00:02 | PDOC.PN ---
- Subjective Encounter Start Date: 05/05/18 Encounter Start Time: 11:45 Non-verbal. - Objective Resuscitation Status: Resuscitation Status DNR:Do Not Resuscitate Vital Signs & Weight: Weight Weight 146 lb 9.718 oz Most Recent Monitor Data Heart Rate from ECG 80 NIBP 111/39 NIBP BP-Mean 53 Respiration from ECG 15 SpO2 99 I&O: 05/04/18 05/05/18 05/06/18 06:59 06:59 06:59 Intake Total 1641.6 844 Output Total 795 455 Balance 846.6 389 Result Diagrams: 05/05/18 03:40 05/05/18 03:40 Additional Labs: Accuchecks 05/05/18 05/05/18 05:56 00:34 POC Glucose 145 H 148 H Phys Exam - Physical Examination Unresponsive Coarse BS Cardiovascular: RRR, no significant murmur Dx/Plan (1) Intracerebral hemorrhage Code(s): I61.9 - NONTRAUMATIC INTRACEREBRAL HEMORRHAGE, UNSPECIFIED Status: Acute - Plan * Showed no indication of improvement. * Terminally extubated. * Continue comfort measures..
--- NOTE | 2018-05-06 08:21 | PRG ---
DATE OF SERVICE: 05/06/2018 This morning she remains unresponsive. To my surprise, she was extubated yesterday, still breathing spontaneously at about 13 times. PHYSICAL EXAMINATION: VITAL SIGNS: Blood pressure 135/57, pulse 118. HEENT: Pupils are pinpoint, unresponsive. CHEST: Chest reveals decreased breath sounds, no wheezing. CARDIAC: Normal S1, S2. ABDOMEN: Soft, no masses. IMPRESSION: Massive intracerebral hemorrhage PLAN: O2 sats, extubation. Comfort care. She is going to be transferred out of the ICU. Family is at the bedside.
[2018-05-06] MEDS ORDERED: Famotidine/PF 20 mg/2ml Vial SLOW IVP SCH (09:00)
[2018-05-06] MEDS: Morphine 10 MG/ML VIAL SLOW IVP PRN (14:11)
--- NOTE | 2018-05-07 13:33 | DIS ---
DATE OF ADMISSION: 05/04/2018 DATE OF DISCHARGE: 05/06/2018 DISCHARGE DIAGNOSES: 1. Severe intracerebral hemorrhage. 2. Acute respiratory failure. 3. Acute kidney injury. 4. Lactic acidosis. 5. Diabetes mellitus. HISTORY: The patient is an 87-year-old female, who presented via the emergency department from an as sisted living facility after being found unresponsive with pinpoint pupils. The patient was subseque ntly brought to the hospital where workup and imaging confirmed a large intraventricular hemorrhage w ith large left hemispheric hemorrhage and surrounding edema with midline shift. The patient required intubation for respiratory failure and appeared to have some acute renal injury with creatinine up t o 1.41. Ultimately, a conversation was had with the patient's family regarding the severe nature of the bleed and the poor prognosis associated with that. On the second day, the patient was terminally extubated. When she was extubated, she was able to maintain a blood pressure and pulse for a period of time and ultimately the family met with inpatient hospice and agreed to transition the patient to that service. For exam, please see the progress note dictated 05/06/2018. Otherwise, plan of care will be per the hospice team.
--- NOTE | 2018-05-08 17:05 | EKG ---
Test Reason : Blood Pressure : / mmHG Vent. Rate : 125 BPM Atrial Rate : 125 BPM P-R Int : 138 ms QRS Dur : 102 ms QT Int : 316 ms P-R-T Axes : 077 049 196 degrees QTc Int : 456 ms Sinus tachycardia with Premature supraventricular complexes and with occasional Premature ventricular complexes Nonspecific ST and T wave abnormality Abnormal ECG Confirmed by LI CABELLO ([id number]), online editor HUMA BARAJAS ([id number]) on 05/08/2018 5:04:23 PM Referred By: Confirmed By:LI CABELLO
== END 2018-05-06 16:41 | disposition hospice, inpatient (51) | DRG 64 ==
LOC: ERS 12:56 → CCU 15:42
PROVIDERS: ADMIT Family Medicine; ATTEND Family Medicine
PROC: 0BH17EZ Insertion of Endotracheal Airway into Trachea, Via Natural or Artificial Opening (ICD-10-PCS; principal; 2018-05-04)
PROC: 5A1945Z Respiratory Ventilation, 24-96 Consecutive Hours (ICD-10-PCS; 2018-05-04)
DX: I62.9 Nontraumatic intracranial hemorrhage, unspecified (principal); G93.6 Cerebral edema; G93.5 Compression of brain; J96.01 Acute respiratory failure with hypoxia; J69.0 Pneumonitis due to inhalation of food and vomit; I50.22 Chronic systolic (congestive) heart failure; N17.9 Acute kidney failure, unspecified; E87.2 Acidosis; R40.2431 Glasgow coma scale score 3-8, in the field [EMT or ambulance]; I62.00 Nontraumatic subdural hemorrhage, unspecified; I61.5 Nontraumatic intracerebral hemorrhage, intraventricular; Z66 Do not resuscitate; E11.9 Type 2 diabetes mellitus without complications; I11.0 Hypertensive heart disease with heart failure; E78.5 Hyperlipidemia, unspecified; E86.0 Dehydration; I61.2 Nontraumatic intracerebral hemorrhage in hemisphere, unspecified; R40.20 Unspecified coma; Z51.5 Encounter for palliative care; Z85.3 Personal history of malignant neoplasm of breast; Z90.13 Acquired absence of bilateral breasts and nipples; Z96.653 Presence of artificial knee joint, bilateral; Z82.49 Family history of ischemic heart disease and other diseases of the circulatory system
CPT/HCPCS: 36416; 36556; 51702; 70450; 71045; 72125; 80048; 80053; 80306; 80307; 81003; 81015; 82553; 82805; 83605; 83690; 83930; 84484; 85025; 86850; 86900; 86901; 87040; 87077; 87086; 93005; 94002; 94003; 94760; 96365; 96366; 96367; 96368; 96375; J0171; J0282; J0692; J2150; J2270; J7050; J7070; J7799; S0028

== ENCOUNTER 2018-05-06 16:42 | Inpatient (IN) | payer OTHER ==
[2018-05-06 18:35] VITALS: BMI 20.4
[2018-05-06] MEDS ORDERED: Ondansetron ODT 4 MG TAB PO PRN (18:53)
[2018-05-06] MEDS ORDERED: Scopolamine 1.5 mg/72 hour Patch TOP PRN (18:53)
[2018-05-06] MEDS ORDERED: Lorazepam 2 MG/ML VIAL SLOW IVP PRN ×2 (18:53)
[2018-05-06] MEDS ORDERED: Zolpidem Tartrate 5 MG TAB PO PRN (18:53)
[2018-05-06] MEDS ORDERED: chlorproMAZINE HCl 50 MG/2 ML AMP IM PRN ×2 (18:53)
[2018-05-06] MEDS ORDERED: Hyoscyamine Sulfate SL 0.125 mg Tablet SL PRN (18:53)
[2018-05-06] MEDS ORDERED: Loperamide HCl 2 MG CAP PO PRN (18:53)
[2018-05-06] MEDS ORDERED: Lorazepam 1 MG TAB PO PRN ×2 (18:53)
[2018-05-06] MEDS ORDERED: Promethazine HCl 25 MG SUPP PR PRN (18:53)
[2018-05-06] MEDS ORDERED: Morphine IR Tab 15 MG TAB PO PRN (18:53)
[2018-05-06] MEDS ORDERED: Haloperidol Lactate 5 MG/ML VIAL SLOW IVP PRN (18:53)
[2018-05-06] MEDS ORDERED: diphenhydrAMINE 25 MG CAP PO PRN (18:53)
[2018-05-06] MEDS ORDERED: diphenhydrAMINE 50 MG/ML VIAL IVP PRN (18:53)
[2018-05-06] MEDS ORDERED: Morphine 10 MG/0.5 ML ORAL SYRINGE SL PRN (18:53)
[2018-05-06] MEDS ORDERED: Ondansetron PF 4 MG/2 ML Vial IVP PRN (18:53)
[2018-05-06] MEDS ORDERED: Milk Of Magnesia 30 ML UDCUP PO PRN (18:53)
[2018-05-06] MEDS ORDERED: chlorproMAZINE HCl 25 MG in Sodium Chloride 0.9% 50 ML IVPB PRN (18:53)
[2018-05-06] MEDS ORDERED: ALPRAZolam 0.25 MG TAB PO PRN (18:53)
[2018-05-06] MEDS ORDERED: Ibuprofen 100 MG/5 ML UDCUP PO PRN (18:57)
[2018-05-06] MEDS ORDERED: Morphine 10 MG/ML VIAL SLOW IVP PRN (19:14)
[2018-05-06] MEDS ORDERED: Prevnar 13-Val Conj/PF 0.5 ML SYRINGE IM ONE (19:30)
[2018-05-06 19:47] VITALS: BP 140/63; TEMP 98.9
--- NOTE | 2018-05-07 14:25 | DIS ---
DATE OF ADMISSION: 05/06/2018 DATE OF DISCHARGE: 05/06/2018 NOTE/DISCHARGE SUMMARY: HOSPITAL COURSE: Ms. Doyle was admitted to the Hospice Service inpatient on June 05 after being discharged from the regular hospital stay. She was admitted on the May 04 after being found down at her home, workup diagnosis was a large hemorrhagic left hemispheric stroke with respiratory failure. She was initially intubated and discussions with family were to extubate her. She after extubation, maintained her blood pressure long enough to obtain, I decided to move her out from hospital status and to put her onto the Hospice Service. She was placed in the Hospital Service, was kept comfortable. Family was at bedside and the patient passed peacefully only a few hours later. There were no concerns at that time. Family was grieving appropriately and pastoral care was notified. [facility] was involved and had their nurse and their 3rd mate/sales representative advertising at the site for the . Job ID: [id number]
== END 2018-05-06 21:40 | disposition expired | DRG 951 ==
LOC: CCU 16:42 → ONC 18:28
PROVIDERS: ADMIT Family Medicine; ATTEND Family Medicine
DX: Z51.5 Encounter for palliative care (principal); I61.2 Nontraumatic intracerebral hemorrhage in hemisphere, unspecified; G93.5 Compression of brain; J96.01 Acute respiratory failure with hypoxia; I47.2 Ventricular tachycardia; I50.20 Unspecified systolic (congestive) heart failure; N17.9 Acute kidney failure, unspecified; E87.2 Acidosis; R40.2431 Glasgow coma scale score 3-8, in the field [EMT or ambulance]; Z66 Do not resuscitate; E11.9 Type 2 diabetes mellitus without complications; M19.90 Unspecified osteoarthritis, unspecified site; I11.0 Hypertensive heart disease with heart failure; E78.5 Hyperlipidemia, unspecified; Z85.3 Personal history of malignant neoplasm of breast; Z88.1 Allergy status to other antibiotic agents; Z88.8 Allergy status to other drugs, medicaments and biological substances
CPT/HCPCS: J2060; J2270